=== PATIENT | male | born 1935 | race Caucasian/White ===

== ENCOUNTER 2017-10-05 11:44 | Outpatient (CLI) | payer MEDICARE ==
[2017-10-05 12:25] LABS: Estimated GFR-MDRD - POC Greater than 90
--- NOTE | 2017-10-05 14:54 | CT ---
CT ANGIO OF ABDOMEN AND PELVIS AND LOWER EXTREMITIES PERFORMED WITH INTRAVENOUS CONTRAST ENHANCEMENT WITH 3D RECONSTRUCTIONS: History: Left leg pain with blockage to the left calf region. History of prostate cancer with chemoth erapy and radiation. History of previous back surgery. FINDINGS: There is a large right pleural effusion. There is subsegmental atelectatic changes in the left base a nd more extensive atelectatic change in the right base. Some slight ground glass opacity to the lung lam which could indicate some element of edema. The liver is difficult to assess on this angiographic phase exam. There is hypodensity seen within th e right lobe which may represent a cyst. The spleen, pancreas, and gallbladder regions all appear unr emarkable. Right and left adrenal glands show a hyperplastic appearance to the left adrenal gland. Right and lef t kidneys are normal in size. No significant periaortic or mesenteric adenopathy. There is a midline abdominal wall hernia which is a somewhat intermittent hernia along the midline from the upper abdome n to the periumbilical region. It is mainly fat containing although the periumbilical component has b owel directly adjacent to it. The bladder wall is thickened with bladder diverticula related to enlarged prostate. Post-operative c hanges of the left hip are seen. Angiographic study yielded a good exam. There is atherosclerotic change of the take-off of the celiac and superior mesenteric arteries without any significant stenosis. There are single renal arteries b ilaterally. There is some atherosclerotic plaque at the origin of the right renal artery without any definite significant narrowing. There are two left renal arteries present with some moderate plaque f ormation near the origin of both of these arteries. 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 There is no flow in the la posta aorta. On the right side the right graft terminates at an area of narrowing at the right common femoral lucas ry and there is occlusion of the superficial femoral artery with profunda femoral artery seen within the thigh. The patient has undergone an AKA. On the left side, common femoral artery is small but patent with atherosclerotic change. There are ar eas of severe narrowing along the course of the superficial femoral artery which is very small and sh ows prominent calcified plaque. The profunda femoral artery is patent. There are areas of marked scle rosis of the popliteal artery which is also very small and it forms and anterior and posterior tibial arteries, which are small, but appear patent to the foot. There is diffuse muscle atrophy of the skip f region. Changes are most pronounced in the posterior compartment. IMPRESSION: 1. Large right pleural effusion with bibasilar atelectatic lung changes, more extensive atelectasis i n the right lower lobe. There is also some ground glass opacity to the lung lam which could indica te some element of edema. 2. 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 There is narrowing of the femoral anastomosis on the right and superficial femoral artery occludes at its origin with sm all branches of the profunda femoral artery seen within the thigh. 3. On the left side, the aorta fem graft is intact. Mild narrowing at the superficial femoral artery and severe narrowing along the course of the superficial femoral artery and popliteal artery forming a very small anterior and posterior tibial arteries which extend to the foot. POS: TAYLOR
[2017-10-05] MEDS ORDERED: Iopamidol 370 76% 100 ML VIAL ONE (16:55)
== END 2017-10-05 11:45 | disposition home or self-care (01) ==
LOC: CT 11:44
PROVIDERS: ATTEND Thoracic Surgery (Cardiothoracic Vascular Surgery)
DX: I70.202 Unspecified atherosclerosis of native arteries of extremities, left leg (principal); J90 Pleural effusion, not elsewhere classified; J98.11 Atelectasis; R91.8 Other nonspecific abnormal finding of lung field
CPT/HCPCS: 75635